=== PATIENT | female | born 1945 | race Caucasian/White ===

== ENCOUNTER 2024-03-23 16:00 | Inpatient (IN) | payer OTHER, SELFPAY ==
[2024-03-23] VITALS (16 sets, daily range): BP systolic 134–178; BP diastolic 67–108
[2024-03-23 12:48] LABS: % Basophils 0.1 % (0-2); % Immature Granulocytes 0.4 % (0-0.5); % Lymphocytes 3.5 % (20.5-51.1); % Monocytes 7.5 % (1.7-9.3); % Neutrophils 88.5 % (42.2-75.2); Absolute Immature Granulocytes 0.1 10^3/uL (0-0.05); Absolute Lymphocytes 0.6 10^3/uL (1.2-3.4); Absolute Monocytes 1.2 10^3/uL (0.1-0.6); Absolute Neutrophils 14.1 10^3/uL (1.4-6.5); Hematocrit 36.4 % (37.0-47.0); Hemoglobin 12.8 g/dL (12.0-16.0); Mean Corp Hgb Conc. 35.2 g/dL (33.0-37.0); Mean Corpuscular Hgb 36.9 pg (27.0-31.0); Mean Corpuscular Volume 104.9 fL (81.0-99.0); Nucleated Red Blood Cells % 0 %; Platelet Count 380 10^3/uL (130-400); Red Blood Cell Count 3.47 10^6/uL (4.20-5.40); Red Cell Dist. Width 13.3 % (11.5-14.5)
[2024-03-23 13:08] LABS: ALT (SGPT) 15 U/L (0-35); AST (SGOT) 25 U/L (14-36); Albumin 3.9 g/dl (3.5-5.0); Alkaline Phosphatase 76 U/L (38-126); Blood Urea Nitrogen 18 mg/dl (7-17); Calcium 10.2 mg/dl (8.4-10.2); Carbon Dioxide 28 mmol/L (22-30); Chloride 100 mmol/L (98-107); Creatine Phosphokinase 57 U/L (30-135); Estimated Creatinine Clearance 54 ml/min; Glucose 157 mg/dl (70-99); Potassium 3.7 mmol/L (3.5-5.1); Sodium 141 mmol/L (135-145); Total Bilirubin 1.7 mg/dl (0.2-1.3); Total Protein 6.1 g/dl (6.3-8.2); eGFR > 60.00
--- NOTE | 2024-03-23 13:23 | ED.MUSCINJ ---
HPI-Injury
General
Chief Complaint: Fall
Source: patient
Exam Limitations: none
Time Seen by Provider: 03/23/24 13:13
History of Present Illness-Injury
Initial Injury comments:
78-year-old female presents via EMS from place of residence after a fall 4 nights ago. She injured her right upper leg and had not been able to walk since then. She crawled back to a couch and has been couch bound since then. Today was the first
day she was able to make her way to a phone to call 911. She has not had her medicine or anything to eat or drink since then. She complains of right hip pain. She did not hit her head. She is treated for hypertension. She is not anticoagulated.
She ambulatory independently without a cane or walker typically.
Phy Exam
Physical Exam
Physical Exam:
General: Well-appearing female no acute respiratory distress
HEENT: Normocephalic atraumatic
Heart: Regular rate and rhythm no murmurs
Lungs: Clear no wheeze
Musculoskeletal exam: The patient is tender to the right upper thigh and. There is increased pain with internal rotation of the right hip. No deformity that is notable. The spine is nontender
Extremities: No cyanosis
Injury Course
Orders/Labs/Results
Orders:
Orders
03/23/24 12:38
Complete Blood Count/With Diff Urgent
Comprehensive Metabolic Panel Urgent
Creatine [Creatine Phosphokinase] Urgent
03/23/24 13:21
CR Hip - RT w/wo Pel 2-3 Vw* Urgent
Comment:
Reason For Exam: pain, after fall
Include a pelvis x-ray?: Yes
Abnormal Lab Results
03/23/24
12:38
WBC 16.0 H 10^3/uL
(4.8-10.8)
RBC 3.47 L 10^6/uL
(4.20-5.40)
Hct 36.4 L %
(37.0-47.0)
MCV 104.9 H fL
(81.0-99.0)
MCH 36.9 H pg
(27.0-31.0)
Abs Immat Gran (auto) 0.1 H 10^3/uL
(0-0.05)
Absolute Neuts (auto) 14.1 H 10^3/uL
(1.4-6.5)
Absolute Lymphs (auto) 0.6 L 10^3/uL
(1.2-3.4)
Absolute Monos (auto) 1.2 H 10^3/uL
(0.1-0.6)
Neutrophils % 88.5 H %
(42.2-75.2)
Lymphocytes % 3.5 L %
(20.5-51.1)
BUN 18 H mg/dl
(7-17)
Glucose 157 H mg/dl
(70-99)
Total Bilirubin 1.7 H mg/dl
(0.2-1.3)
Total Protein 6.1 L g/dl
(6.3-8.2)
03/23/24 12:38
03/23/24 12:38
MDM/Problems Addressed
Differential Diagnosis Includes:
Fall with right upper thigh/hip pain. Question contusion versus fracture versus dislocation. X-rays pending.
Patient has been couch bound for 4 days after the fall. Will check labs including CPK
*Critical Care Note
Total Time (30-74mins, 75-104mins- exclusive of procedures): Not Applicable
Update Note
Update Note:
I personally visualized x-rays of the right hip which demonstrate acute nondisplaced intertrochanteric hip fracture. Patient notified. Made hospitalist and orthopedics aware. Will admit to hospital
ED Attending Note
-
Portions of this chart may have been created with voice recognition software.� Occasional wrong word or��sound alike� substitutions may have occurred due to the inherent limitations of voice recognition software.
Discharge Plan
Departure
Patient Disposition: Admit
Date of Disposition: 03/23/24
Time of Disposition: 14:10
Admit to: Med/Surg
Presentation/result/management discussed w/ accepting MD/DO: Hospitalist
Discharge Problem:
Intertrochanteric fracture of right hip
Referrals:
Brendan Ocampo DO [Family Provider] -
Interventions
Interventions:
*Risk Screen - Suicide Last Done: 03/23/24 13:04
*General Assessment Last Done: 03/23/24 13:04
*Neglect/Abuse Screening Last Done: 03/23/24 13:04
ED- Fall Risk Assessment Last Done: 03/23/24 13:04
*ED COVID-19 Vaccine History Last Done: 03/23/24 12:34
ED-Musculoskeletal Assessment Last Done: 03/23/24 13:04
ED- Neurological Assessment Last Done: 03/23/24 13:04
ED-Skin Assessment Last Done: 03/23/24 13:04
Discharge Date and Time
Print Language: WOLOF
[2024-03-23] MEDS: NSS 1000 IV ×2 (14:50→18:13)
--- NOTE | 2024-03-23 14:55 | HPS.HSE ---
Family Physician
-
Family Physician: Brendan Ocampo
Chief Complaint
-
fall, right hip pain
History of Present Illness
78-year-old female past medical history of hypertension, presenting after a fall. She fell 4 nights ago after tripping on sneakers and injured her right upper leg and has not been able to walk since then. She crawled back to couch and has been
bedbound since then. Today was the first day she was able to make her way to her phone to call 911. She complains of right hip pain. She did not hit her head. She normally ambulates independently without a cane or walker.
She smokes occasionally. She denies alcohol use.
She denies any chest pain or shortness of breath or dizziness. No history of cardiac problems.
Medical History
Past Medical History
Past Medical History: Reports Other (hypertension)
Past Surgical History: Reports None
Social History
Tobacco: Smoker
Alcohol: None
Drug: None
Family History
Family History: Not pertinent
Allergies / Home Medications
Allergies reflects when Allergies were last updated in [employer].
Home Medications with original date entered in [employer]
Allergy/Medication List:
Allergies
Allergy/AdvReac Type Severity Reaction Status Date / Time
No Known Allergies Allergy Unverified 03/23/24 12:32
Home Medications
atorvastatin 40 mg tablet (Lipitor) 40 mg PO HS 03/23/24
cholecalciferol (vitamin D3) 25 mcg (1,000 unit) tablet (Vitamin D3) 25 mcg PO DAILY 03/23/24
cyanocobalamin (vitamin B-12) 1,000 mcg tablet 1,000 mcg PO DAILY 03/23/24
diltiazem HCl 360 mg capsule,extended release 24 hr 360 mg PO DAILY 03/23/24
folic acid 1 mg tablet 1 mg PO DAILY 03/23/24
furosemide 20 mg tablet (Lasix) 20 mg PO Q48H 03/23/24
hydralazine 25 mg tablet 75 mg PO DAILY 03/23/24
metoprolol succinate 50 mg tablet,extended release 24 hr (Toprol XL) 50 mg PO BID 03/23/24
potassium chloride 20 mEq tablet,extended release 40 meq PO DAILY 03/23/24
Review of Systems
-
History Source: Patient
A 12 point ROS was completed and negative except as noted: Yes
Constitutional: Reports No Symptoms
EENT: Reports No Symptoms
Respiratory: Reports No Symptoms
Cardiac: Reports No Symptoms
Abdomen/GI: Reports No Symptoms
: Reports No Symptoms
Musculoskeletal: Reports No Symptoms
Skin: Reports No Symptoms
Neurological: Reports No Symptoms
Endocrine: Reports No Symptoms
Hematologic/Lymphatic: Reports No Symptoms
Psych: Reports No Symptoms
Physical Exam
Vital Signs
Vital Signs
Temp Pulse Resp BP Pulse Ox
98.7 F 78 18 147/87 97
03/23/24 12:31 03/23/24 12:31 03/23/24 12:31 03/23/24 12:31 03/23/24 12:31
Physical Exam
General: Well Developed, Well Nourished and No Apparent Distress
HEENT: NormoCephalic, Moist mucous membranes and Atraumatic
Respiratory: Clear
Cardiac: S1/S2 and Regular Rhythm; No Murmur or Rub
GI: Soft, Non Tender, Non Distended and Normal Bowel Sounds; No Organomegaly
Rectal: Deferred by Provider
Musculoskeletal: No Clubbing, No Cyanosis and No Edema
Skin: No Rash
Neuro: Nonfocal/grossly intact
Laboratory Results
-
03/23/24 12:38
03/23/24 12:38
Laboratory Results
Total Bilirubin 1.7 mg/dl (0.2-1.3) H 03/23/24 12:38
AST 25 U/L (14-36) 03/23/24 12:38
ALT 15 U/L (0-35) 03/23/24 12:38
Alkaline Phosphatase 76 U/L (38-126) 03/23/24 12:38
Data Reviewed
-
Lab Data: Labs Reviewed by me
Old Records: Reviewed
Impression/Plan
-
IMPRESSION:
PLAN:
# Mechanical fall resulting in right femur fracture
-N.p.o.
-Patient to go to the OR soon by ortho
-Tylenol, tramadol for pain
Essential hypertension
-Continue diltiazem, hydralazine, metoprolol
-Continue statin
Occasional lower extremity edema
-Takes Lasix as needed
DNR/DNI
DVT prophylaxis�SCDs
N.p.o.
--- NOTE | 2024-03-23 15:54 | CON.ORTHO ---
Consultation - Orthopedics
History
HPI: 78-year-old female presents emergency department status post mechanical fall at home. She subsequently diagnosed with minimally displaced right intertrochanteric femur fracture. She was admitted to the hospital service and orthopedics was
consulted for further evaluation and treatment. Patient reports that Tuesday evening she was taking out the trash when she tripped and fell. Since that time she has been unable to walk and she has been laying on a couch at home. She localizes pain
to the right groin. She has been unable to bear weight. Symptoms are made worse with motion to the right hip. She does not use a cane or walker for ambulatory assistance. She lives alone at home.
Allergies / Home Medications
Past medical history: Hypertension
Past surgical history: None reported
Family history: Not pertinent
Social history: Lives alone at home, denies significant alcohol usage, occasional cigarette smoking
Allergy/AdvReac Type Severity Reaction Status Date / Time
No Known Allergies Allergy Unverified 03/23/24 12:32
�Medication �Instructions �Recorded
atorvastatin 40 mg tablet (Lipitor) 40 mg PO HS 03/23/24
cholecalciferol (vitamin D3) 25 25 mcg PO DAILY 03/23/24
mcg (1,000 unit) tablet (Vitamin
D3)
cyanocobalamin (vitamin B-12) 1,000 mcg PO DAILY 03/23/24
1,000 mcg tablet
diltiazem HCl 360 mg 360 mg PO DAILY 03/23/24
capsule,extended release 24 hr
folic acid 1 mg tablet 1 mg PO DAILY 03/23/24
furosemide 20 mg tablet (Lasix) 20 mg PO Q48H 03/23/24
hydralazine 25 mg tablet 75 mg PO DAILY 03/23/24
metoprolol succinate 50 mg 50 mg PO BID 03/23/24
tablet,extended release 24 hr
(Toprol XL)
potassium chloride 20 mEq 40 meq PO DAILY 03/23/24
tablet,extended release
Vital Signs / Lab Results
Temp Pulse Resp BP Pulse Ox
98.7 F 78 16 150/76 97
03/23/24 12:31 03/23/24 14:55 03/23/24 14:55 03/23/24 14:55 03/23/24 14:55
03/23/24 12:38
03/23/24 12:38
10 point review systems reviewed and negative unless otherwise stated
General: Pleasant, no acute distress at rest
Musculoskeletal left lower extremity
Skin intact, erythema, no ecchymotic staining
Leg lengths are approximately equal with mild rotational ex rotation deformity
No palpable ipsilateral knee effusion
Tenderness palpation over groin and lateral trochanteric flare
Positive EHL, FHL, ankle dorsiflexion, plantarflexion
Brisk cap refill
Sensation grossly tact light touch distally
No other areas of bony tenderness palpation or crepitation of long bones or joints on tertiary examination
Diagnostic studies
X-rays right hip and knee independently viewed by myself. There is evidence of a minimally displaced right intertrochanteric femur fracture
Assessment / Plan
78-year-old female minimally displaced right intertrochanteric femur fracture. I had a long detailed discussion the patient regarding diagnosis and treatment options. Discussed both surgical nonsurgical options. After discussion we mutually
elected to proceed with surgical intervention in the form of cephalomedullary nail fixation. We discussed risks benefits and alternatives of surgery. Discussed the usual expected perioperative postoperative course. After our discussion written
informed consent was obtained
Nonweightbearing right lower extremity
N.p.o.
Please hold anticoagulation
Medical management per primary team
Plan: 2 OR today for operative fixation right intertrochanteric femur fracture pending OR availability and medical clearance
--- NOTE | 2024-03-23 17:02 | OR.RPT ---
Operative Report
Operative Report
Anesthesia Type:
General
Operative Indications:
Intertrochanteric femur fracture
Operative Findings :
Same, minimally displaced
Complications:
None
Implants:
130 degree, 10 mm short gamma nail, 80 mm cephalomedullary lag screw, 30 mm x 5 mm interlocking screw
Procedure and Technique:
Insertion right short cephalomedullary nail
INDICATIONS FOR PROCEDURE:
78-year-old patient presented status post mechanical fall. They were subsequently diagnosed with an intertrochanteric femur fracture. Orthopedics was consulted for further evaluation and treatment. After discussion with the patient and her
family, decision was made to proceed with operative intervention in the form of short cephalomedullary nail. Long discussion was had regarding risks and benefits of procedure. Risks include but are not limited to infection, blood loss, damage to
surrounding structures, persistent pain, loss of function, need for repeat surgery, implant cut out, periprosthetic fracture, DVT/PE and adverse risks of anesthesia. Benefits include early mobilization and fracture stabilization. After discussion
written informed consent was obtained.
OPERATIVE PROCEDURE:
Patient was seen and identified in the preoperative holding area. Operative extremity was marked. Patient was taken to the operating room and provided anesthesia by the anesthesia team. Placed supine on fracture table. Nonoperative extremity was
placed in a scissored position and padded with a gel pad to the contralateral post of the fracture table. Operative extremity was placed in a well-padded fracture boot. Biplanar fluoroscopy confirmed appropriate reduction after axial traction,
adduction and slight internal rotation of the fracture. Operative extremity was then prepped and draped in normal sterile fashion. Timeout was performed again identifying the operative extremity correctly. Preoperative antibiotics were addressed.
Approximately 5 cm incision was made 2 fingerbreadths proximal to the greater trochanter. Sharp dissection was carried through skin and subcutaneous tissues deep fascial layers. Guidepin was then inserted under plantar fluoroscopic guidance
through the greater trochanter in accordance with the implants operative technique. This was inserted to a depth just distal to the lesser trochanter. Proximal opening reamer was then utilized. A short cephalomedullary nail was then inserted to
the appropriate depth. Trocar was then inserted through the aiming arm. Sharp dissection was then carried through skin and subcutaneous tissues as well as deep fascial layers. Guidewire was inserted through the trocar into the femoral neck and
head. Appropriate position was confirmed under biplanar fluoroscopy. Attention was made to minimize the tip apex distance. Measurements were obtained for the cephalomedullary screw. Cannulated drill was then drilled to the appropriate depth
followed by the insertion of cannulated cephalomedullary screw. Appropriate final position of the screw within the confines of the femoral neck and head were confirmed again on biplanar fluoroscopy. Setscrew was deployed additional trocar was then
inserted through the aiming arm for the distal interlocking screw. Sharp dissection was carried through skin, subcutaneous tissues and deep fascial layers. Appropriate length interlocking screw was then drilled and inserted. Final appropriate
positioning was confirmed again on biplanar fluoroscopy. Satisfied with the extent of surgery, wounds were copiously irrigated with normal saline solution and closed in a layered fashion utilizing 0 Vicryl for deep fascial layer, 2-0 Vicryl for
subcu cutaneous layer and justin for skin. Aquacel dressings were applied. Anesthesia was reversed and patient was taken to the operating room in stable condition. Postoperative plans include weightbearing the patient's tolerance right lower
extremity. Recommend DVT prophylaxis Lovenox renally dosed daily x 28 days
Disposition:
PACU stable condition
--- NOTE | 2024-03-23 20:00 | PTCARENOTE ---
Pt arrived from PACU at 18:45 post R hip ORIF with Gamma Nail fell 4 days ago, got to her couch was only able to get to phone on 03/23. Pt lives alone independently at [facility] in [place]. PMH HTN and she currently according to PT smokes less
than a pack a week. PT AOx3, bed in a low position, denies pain, call light in reach.
[2024-03-23] MEDS: TOPROL XL 50 MG PO (20:19)
[2024-03-23] MEDS: COLACE 100 MG PO (20:19)
[2024-03-23] MEDS: LIPITOR 40 MG PO (22:06)
[2024-03-23] MEDS: ANCEF 5 IV (23:57)
[2024-03-24] VITALS (8 sets, daily range): BP systolic 105–152; BP diastolic 48–69; PULSE 63; O2SAT 94–97
[2024-03-24] MEDS: NSS 1000 IV (02:30)
[2024-03-24 07:24] LABS: % Basophils 0.1 % (0-2); % Immature Granulocytes 0.4 % (0-0.5); % Lymphocytes 4.1 % (20.5-51.1); % Monocytes 8.3 % (1.7-9.3); % Neutrophils 87.1 % (42.2-75.2); Absolute Immature Granulocytes 0.1 10^3/uL (0-0.05); Absolute Lymphocytes 0.7 10^3/uL (1.2-3.4); Absolute Monocytes 1.3 10^3/uL (0.1-0.6); Absolute Neutrophils 13.9 10^3/uL (1.4-6.5); Hematocrit 29.9 % (37.0-47.0); Hemoglobin 10.8 g/dL (12.0-16.0); Mean Corp Hgb Conc. 36.1 g/dL (33.0-37.0); Mean Corpuscular Hgb 38.2 pg (27.0-31.0); Mean Corpuscular Volume 105.7 fL (81.0-99.0); Mean Platelet Volume 9.4 fL (7.4-10.4); Nucleated Red Blood Cells % 0 %; Platelet Count 323 10^3/uL (130-400); Red Blood Cell Count 2.83 10^6/uL (4.20-5.40); Red Cell Dist. Width 13.4 % (11.5-14.5); White Blood Cell Count 15.9 10^3/uL (4.8-10.8)
[2024-03-24 07:56] LABS: ALT (SGPT) 12 U/L (0-35); AST (SGOT) 28 U/L (14-36); Albumin 2.9 g/dl (3.5-5.0); Alkaline Phosphatase 59 U/L (38-126); Blood Urea Nitrogen 13 mg/dl (7-17); Calcium 8.7 mg/dl (8.4-10.2); Carbon Dioxide 27 mmol/L (22-30); Chloride 102 mmol/L (98-107); Estimated Creatinine Clearance 54 ml/min; Glucose 101 mg/dl (70-99); Sodium 141 mmol/L (135-145); Total Protein 5.1 g/dl (6.3-8.2); eGFR > 60.00
--- NOTE | 2024-03-24 08:24 | W.PN.HOSP.TC ---
Today's Communication/Plan
-
see bold
Assessment / Plan
Assessment / Plan
Gen: NAD, Awake and alert, appears chronically ill and malnourished, cachectic
Eyes: EOMI, PERRLA, no scleral icterus.
Neck: supple.
CV: RRR, +S1/S2, no m/r/g.
Resp: CTAB, no rales, wheezes, or rhonchi.
Abd: +BS, soft, NT, ND
Skin: No rashes.
Neuro: CN 2-12 intact, non-focal.
Psych: Normal mood and affect.
Mechanical fall resulting in right femur fracture:
-s/p insertion right short cephalomedullary nail on 03/23/24
-ortho following
Other problems:
Hyperkalemia: 40meq x 2, check Mg
Essential hypertension: Continue diltiazem, hydralazine, metoprolol
HLD: Continue statin
Occasional lower extremity edema: Takes Lasix as needed
DNR/DNI
DVT prophylaxis�SCDs
Medically cleared for discharge, case management aware.
Anticipated Discharge: Today
Subjective/Interval History
-
Date of Service: March 24, 2024
Denies CP/SOB.
Objective Data
-
Labs:
Laboratory Results
03/24/24
04:54
WBC 15.9 H
Hgb 10.8 L
Hct 29.9 L
Plt Count 323
Sodium 141
Potassium 3.0 L
Chloride 102
Carbon Dioxide 27
BUN 13
Creatinine 0.4 L
Glucose 101 H
Calcium 8.7 D
Total Bilirubin 1.0
AST 28
ALT 12
Alkaline Phosphatase 59
Vital Signs:
Vital Signs
Temp Pulse Resp BP Pulse Ox
98.4 F 61 17 151/65 93
03/24/24 07:43 03/24/24 07:43 03/24/24 07:43 03/24/24 07:43 03/24/24 07:43
I&O
03/23/24 03/24/24 03/25/24
06:59 06:59 06:59
Intake Total 1645 / 1645
Output Total 1100 / 1100
Balance 545 / 545
[2024-03-24] MEDS: ANCEF 5 IV (08:30)
[2024-03-24] MEDS: COLACE 100 MG PO ×2 (08:32→20:00)
[2024-03-24] MEDS: FOLVITE 1 MG PO (08:32)
[2024-03-24] MEDS: LOVENOX 40 MG SC (08:33)
[2024-03-24] MEDS: VITAMIN B-12 1000 MCG PO (08:33)
[2024-03-24] MEDS: VITAMIN D3 (cholecalciferol) 25 MCG PO (08:33)
[2024-03-24] MEDS: TOPROL XL 50 MG PO ×2 (08:33→20:04)
[2024-03-24] MEDS: CARDIZEM CD 360 MG PO (08:34)
[2024-03-24] MEDS: APRESOLINE 75 MG PO (08:34)
[2024-03-24] MEDS: KCL 40 MEQ PO ×2 (09:39→13:23)
[2024-03-24 11:03] LABS: Magnesium 1.6 mg/dl (1.6-2.3)
--- NOTE | 2024-03-24 11:28 | W.PN.ORTHO ---
Today's Communication / Plan
-
78-year-old female postop day 1 status post right cephalomedullary nail fixation right intertrochanteric femur fracture doing well
Weightbearing as tolerated right lower extremity
PT OT
Pain control
DVT prophylaxis: Recommend renally dosed Lovenox x 28 days
Medical management per primary team
Plan to follow-up outpatient with myself in 2 to 3 weeks for repeat evaluation with planned removal of justin
Assessment
.
Dressing:
Clean, dry and intact.
Subjective
.
.:
Patient resting comfortably in chair this morning. No acute overnight events documented.
Vital Signs and Labs
.
Vital Signs and Labs:
Lab Results
03/24/24 04:54
03/24/24 04:54
Temp Pulse Resp BP Pulse Ox
98.4 F 61 17 151/65 93
03/24/24 07:43 03/24/24 07:43 03/24/24 07:43 03/24/24 07:43 03/24/24 07:43
Physical Exam
-
Musculoskeletal right lower extremity
Mild bloody drainage on dressings, mild swelling right thigh
Leg lengths equal
Positive EHL, FHL, dorsiflexion, plantarflexion
Brisk cap refill distally
--- NOTE | 2024-03-24 15:13 | CM ---
Addendum entered by Shauna Jimenez 03/24/24 15:26:
[facility] form explained; form signed @ [id number]
Original Note:
Met with patient; initial assessment and case management consult completed
Primary contact verified: Kavin Velez, Son, # [phone]
Pharmacy verified: [facility] @ [address] [place] [address]
Patient reported she lives alone in an apartment, 6th floor; elevator access in building; Bathroom has tub w/shower; grab bars
PLOF: reported she was independent with ambulation and ADLs; Drives
NO SNF or Home Health utilization history
Will need transport to SNF
Explained PT/OT recommendation for SNF when discharged; reviewed options; preferences are #1 [facility] or [facility]; referrals submitted via [facility]
Plan: Discharge to SNF pending bed availability and Authorization approval
[2024-03-24] MEDS: NSS IV (17:17)
[2024-03-24] MEDS: MAGNESIUM SULFATE 100 IV (18:10)
[2024-03-24] MEDS: LIPITOR 40 MG PO (21:18)
[2024-03-25 06:07] LABS: Hematocrit 28.1 % (37.0-47.0); Hemoglobin 9.8 g/dL (12.0-16.0); Mean Corp Hgb Conc. 34.9 g/dL (33.0-37.0); Mean Corpuscular Hgb 36.3 pg (27.0-31.0); Mean Corpuscular Volume 104.1 fL (81.0-99.0); Mean Platelet Volume 9.2 fL (7.4-10.4); Platelet Count 322 10^3/uL (130-400); Red Cell Dist. Width 13.6 % (11.5-14.5); White Blood Cell Count 12.3 10^3/uL (4.8-10.8)
[2024-03-25 06:35] LABS: Blood Urea Nitrogen 17 mg/dl (7-17); Calcium 9.3 mg/dl (8.4-10.2); Carbon Dioxide 26 mmol/L (22-30); Chloride 105 mmol/L (98-107); Estimated Creatinine Clearance 54 ml/min; Glucose 104 mg/dl (70-99); Potassium 4.1 mmol/L (3.5-5.1); Sodium 139 mmol/L (135-145); eGFR > 60.00
[2024-03-25 07:10] VITALS: BP 135/59
--- NOTE | 2024-03-25 08:08 | W.PN.HOSP.TC ---
Today's Communication/Plan
-
d/c
Assessment / Plan
Assessment / Plan
Gen: NAD, Awake and alert, appears chronically ill and malnourished, cachectic
Eyes: EOMI, PERRLA, no scleral icterus.
Neck: supple.
CV: remains RRR, +S1/S2, no m/r/g.
Resp: remains CTAB, no rales, wheezes, or rhonchi.
Abd: +BS, soft, NT, ND
Skin: No rashes.
Neuro: remains CN 2-12 intact, non-focal.
Psych: Normal mood and affect.
Mechanical fall resulting in right femur fracture:
-s/p insertion right short cephalomedullary nail on 03/23/24
-ortho following
Other problems:
Hypokalemia, resolved
Essential hypertension: Continue diltiazem, hydralazine, metoprolol
HLD: Continue statin
Occasional lower extremity edema: Takes Lasix as needed
DNR/DNI
DVT prophylaxis�SCDs
Remains medically cleared for discharge since 03/24/24AM, case management aware.
Anticipated Discharge: Today
Subjective/Interval History
-
Date of Service: March 25, 2024
No new complaints.
Objective Data
-
Labs:
Laboratory Results
03/25/24
05:27
WBC 12.3 H
Hgb 9.8 L
Hct 28.1 L
Plt Count 322
Sodium 139
Potassium 4.1 D
Chloride 105
Carbon Dioxide 26
BUN 17
Creatinine 0.6
Glucose 104 H
Calcium 9.3
Vital Signs:
Vital Signs
Temp Pulse Resp BP Pulse Ox
98.3 F 49 16 108/56 93
03/24/24 22:37 03/24/24 22:37 03/24/24 22:37 03/24/24 22:37 03/24/24 22:37
I&O
03/24/24 03/25/24 03/26/24
06:59 06:59 06:59
Intake Total 1645 / 1645 1580 / 1580
Output Total 1100 / 1100
Balance 545 / 545 1580 / 1580
[2024-03-25 08:50] VITALS: BP 114/52
[2024-03-25] MEDS: CARDIZEM CD 360 MG PO (09:05)
[2024-03-25] MEDS: VITAMIN B-12 1000 MCG PO (09:06)
[2024-03-25] MEDS: LOVENOX 40 MG SC (09:06)
[2024-03-25] MEDS: COLACE 100 MG PO ×2 (09:06→19:49)
[2024-03-25] MEDS: TOPROL XL 50 MG PO ×2 (09:06→19:48)
[2024-03-25] MEDS: APRESOLINE 75 MG PO (09:06)
[2024-03-25] MEDS: VITAMIN D3 (cholecalciferol) 25 MCG PO (09:06)
[2024-03-25] MEDS: FOLVITE 1 MG PO (09:12)
--- NOTE | 2024-03-25 09:13 | PTCARENOTE ---
Patient HR apically this am was 50. Bp was 135/59. Dr. Hirsch made aware as patient is to receive hydralazine, toprol xl, and diltiazem. Recheck was 114/[address] Hirsch instructed Rn to continuing giving all AM medications.
[2024-03-25 10:00] VITALS: BP 101/63; PULSE 62; O2SAT 93
[2024-03-25 15:05] VITALS: BP 100/51
[2024-03-25] MEDS: LIPITOR 40 MG PO (19:49)
[2024-03-25 23:06] VITALS: BP 112/48
[2024-03-26 07:02] LABS: Hematocrit 27.6 % (37.0-47.0); Hemoglobin 9.5 g/dL (12.0-16.0); Mean Corp Hgb Conc. 34.4 g/dL (33.0-37.0); Mean Corpuscular Hgb 36.4 pg (27.0-31.0); Mean Corpuscular Volume 105.7 fL (81.0-99.0); Mean Platelet Volume 9.8 fL (7.4-10.4); Platelet Count 325 10^3/uL (130-400); Red Blood Cell Count 2.61 10^6/uL (4.20-5.40); Red Cell Dist. Width 13.8 % (11.5-14.5)
--- NOTE | 2024-03-26 07:26 | W.PN.HOSP.TC ---
Today's Communication/Plan
-
Awaiting authorization, discharge to short-term rehab tomorrow
Assessment / Plan
Assessment / Plan
Mechanical fall resulting in right femur fracture:
-s/p insertion right short cephalomedullary nail on 03/23/24
-ortho following, follow-up outpatient
-awaiting authorization, discharge to short-term rehab tomorrow
-rec lovenox through 04/19 for DVT ppx
Leukocytosis
-Likely reactive, resolved
Acute blood loss anemia
-From surgery, mild, monitor
Other problems:
Hypokalemia, resolved
Essential hypertension: Continue diltiazem, hydralazine, metoprolol
HLD: Continue statin
Occasional lower extremity edema: Takes Lasix as needed
DVT prophylaxis�Lovenox
DNR
Total time spent to see the patient on the floor, examine the patient, review data and lab results, discuss treatment plan with patient, nursing staff around 36 minutes.
Physical Exam
General: No acute distress
HEENT: Normocephalic, Atraumatic, EOMI, MMM
Respiratory: Clear to Auscultation bilaterally
Cardiac: Normal S1/S2, Regular Rate and Rhythm
GI: Soft, Nontender, Nondistended, Normal Bowel Sounds
Extremities: No Clubbing, Cyanosis
Msk: Right hip incision dressed
Neuro: Nonfocal/Grossly Intact
Anticipated Discharge: Within 24 hours
Subjective/Interval History
-
Date of Service: March 26, 2024
Patient reports her hip pain is tolerable. She had a bowel movement yesterday. No chest pain, shortness of breath. No fever, no vomiting.
Objective Data
-
Labs:
Laboratory Results
03/26/24
05:10
WBC 9.0
Hgb 9.5 L
Hct 27.6 L
Plt Count 325
Sodium Pending
Potassium Pending
Chloride Pending
Carbon Dioxide Pending
BUN Pending
Creatinine Pending
Glucose Pending
Calcium Pending
Vital Signs:
Vital Signs
Temp Pulse Resp BP Pulse Ox
98.4 F 52 20 112/48 90
03/25/24 23:06 03/25/24 23:06 03/25/24 23:06 03/25/24 23:06 03/25/24 23:06
I&O
03/25/24 03/26/24 03/27/24
06:59 06:59 06:59
Intake Total 1580 / 1580 1540 / 1540
Balance 1580 / 1580 1540 / 1540
[2024-03-26 07:27] VITALS: BP 125/55
[2024-03-26 07:28] LABS: Blood Urea Nitrogen 17 mg/dl (7-17); Carbon Dioxide 26 mmol/L (22-30); Chloride 103 mmol/L (98-107); Estimated Creatinine Clearance 54 ml/min; Glucose 102 mg/dl (70-99); Potassium 3.8 mmol/L (3.5-5.1); Sodium 138 mmol/L (135-145); eGFR > 60.00
[2024-03-26] MEDS: APRESOLINE 75 MG PO (08:18)
[2024-03-26] MEDS: CARDIZEM CD 360 MG PO (08:21)
[2024-03-26] MEDS: VITAMIN B-12 1000 MCG PO (08:21)
[2024-03-26] MEDS: VITAMIN D3 (cholecalciferol) 25 MCG PO (08:21)
[2024-03-26] MEDS: LOVENOX 40 MG SC (08:21)
[2024-03-26] MEDS: COLACE 100 MG PO ×2 (08:21→21:13)
[2024-03-26] MEDS: FOLVITE 1 MG PO (08:21)
[2024-03-26] MEDS: TOPROL XL 50 MG PO ×2 (08:22→21:13)
[2024-03-26 10:49] VITALS: BP 122/58; PULSE 56; O2SAT 93
[2024-03-26 10:58] VITALS: BP 122/58; PULSE 57; O2SAT 94
--- NOTE | 2024-03-26 11:21 | CM ---
Addendum entered by Bibi Olivas 03/26/24 11:40:
[facility] - can accept
[facility] - can accept
Discussed with pt - prefers [facility]. Reports she does not feel well today - Dr Cagle made aware
Plan - anticipate transfer to SNF when bed obtained
Original Note:
Case management following for discharge planning
Pt medically ready for discharge
LM with Jaquelin at [facility] and with Ángela at [facility] - to check on bed availability
Waiting on return call
Will need auth when bed obtained
Plan - anticipate transfer to SNF when bed obtained
[2024-03-26 15:25] VITALS: BP 114/58
[2024-03-26] MEDS: LIPITOR 40 MG PO (21:13)
[2024-03-26 23:46] VITALS: BP 124/61
[2024-03-27 07:35] LABS: Hematocrit 30.3 % (37.0-47.0); Hemoglobin 10.5 g/dL (12.0-16.0); Mean Corp Hgb Conc. 34.7 g/dL (33.0-37.0); Mean Corpuscular Hgb 37.1 pg (27.0-31.0); Mean Corpuscular Volume 107.1 fL (81.0-99.0); Mean Platelet Volume 9.9 fL (7.4-10.4); Platelet Count 354 10^3/uL (130-400); Red Blood Cell Count 2.83 10^6/uL (4.20-5.40); Red Cell Dist. Width 13.5 % (11.5-14.5); White Blood Cell Count 8.5 10^3/uL (4.8-10.8)
[2024-03-27 07:49] VITALS: BP 141/68
[2024-03-27] MEDS: CARDIZEM CD 360 MG PO (08:12)
[2024-03-27] MEDS: VITAMIN D3 (cholecalciferol) 25 MCG PO (08:12)
[2024-03-27] MEDS: FOLVITE 1 MG PO (08:12)
[2024-03-27] MEDS: COLACE 100 MG PO (08:12)
[2024-03-27] MEDS: VITAMIN B-12 1000 MCG PO (08:12)
[2024-03-27] MEDS: APRESOLINE 75 MG PO (08:13)
[2024-03-27] MEDS: TOPROL XL 50 MG PO (08:13)
[2024-03-27] MEDS: LOVENOX 40 MG SC (08:16)
--- NOTE | 2024-03-27 09:07 | W.PN.HOSP.TC ---
Today's Communication/Plan
-
Discharge to short-term rehab today
Assessment / Plan
Assessment / Plan
Mechanical fall resulting in right femur fracture:
-s/p insertion right short cephalomedullary nail on 03/23/24
-ortho following, follow-up outpatient
-discharge to short-term rehab today
-rec lovenox through 04/19 for DVT ppx
Leukocytosis
-Likely reactive, resolved
Acute blood loss anemia
-From surgery, mild, monitor
Other problems:
Hypokalemia, resolved
Essential hypertension: Continue diltiazem, hydralazine, metoprolol
HLD: Continue statin
Occasional lower extremity edema: Takes Lasix as needed
DVT prophylaxis�Lovenox
DNR
Physical Exam
General: No acute distress
HEENT: Normocephalic, Atraumatic, EOMI, MMM
Respiratory: Clear to Auscultation bilaterally
Cardiac: Normal S1/S2, Regular Rate and Rhythm
GI: Soft, Nontender, Nondistended, Normal Bowel Sounds
Extremities: No Clubbing, Cyanosis
Msk: Right hip incision dressed
Neuro: Nonfocal/Grossly Intact
Anticipated Discharge: Today
Subjective/Interval History
-
Date of Service: March 27, 2024
Patient denies hip pain. No chest pain, no shortness of breath. No fever, no vomiting.
Objective Data
-
Labs:
Laboratory Results
03/27/24
05:53
WBC 8.5
Hgb 10.5 L
Hct 30.3 L
Plt Count 354
Vital Signs:
Vital Signs
Temp Pulse Resp BP Pulse Ox
98.4 F 58 16 141/68 94
03/27/24 07:49 03/27/24 08:13 03/27/24 07:49 03/27/24 08:13 03/27/24 07:49
I&O
03/26/24 03/27/24 03/28/24
06:59 06:59 06:59
Intake Total 1540 / 1540 1140 / 1140
Output Total 350 / 350
Balance 1540 / 1540 790 / 790
[2024-03-27 10:44] LABS: COVID-19 Antigen Negative (Negative)
--- NOTE | 2024-03-27 10:53 | CM ---
Addendum entered by Bibi Olivas 03/27/24 14:05:
Plan - transfer to [facility]
R - [phone]
F - [phone]
Addendum entered by Bibi Olivas 03/27/24 12:52:
Auth obtained - info given to Jaquelin at [facility]
Original Note:
Case management following for discharge planning
Pt for discharge - PT/OT recs SNF
Accepted by [facility]
Will need auth
Called [facility] to obtain auth - spoke with Chantell
Clinical information reviewed
Pending reference # [id number]
Plan - anticipate transfer to [facility] pending auth
[2024-03-27 11:37] VITALS: BP 125/60; PULSE 56; O2SAT 93
--- NOTE | 2024-03-27 12:06 | W.DCSUMMARY ---
Discharge Summary
Discharge Data
Date of Admission: 03/23/24
Date of Discharge: 03/27/24
-
Pending Results: No
Hospital Course
Discharge diagnosis:
Right femur fracture
Mechanical fall
Leukocytosis
Acute blood loss anemia
Hypokalemia
Essential hypertension
Hyperlipidemia
Consults: Orthopedic surgery
Procedures:
03/23/2024 Insertion right short cephalomedullary nail
Hospital course:
78-year-old female with a past medical history of hypertension, hyperlipidemia, and intermittent lower extremity edema presents with right hip pain status post mechanical fall. Patient was found to have a right intertrochanteric femur fracture.
Patient was seen in conjunction with orthopedic surgery, and underwent ORIF on 03/23/2024.
Patient's hospital course was complicated by mild acute blood loss anemia. Her hemoglobin was monitored, and remained stable at 10.5 on the day of discharge. She also had a leukocytosis, that was likely reactive. Her leukocytosis resolved without
any antibiotics. There were no signs or symptoms of infection.
Patient is medically stable and cleared by orthopedic surgery for discharge. Orthopedic surgery recommends Lovenox 40 mg subcu daily through 04/19/2024 for DVT prophylaxis. Patient is discharged to short-term rehab. If she is to go home from
short-term rehab before 04/19/2024, she will need to be changed from subcu Lovenox to aspirin 325 mg daily for DVT prophylaxis through 04/19/2024. She needs to follow-up with her primary care doctor 1 week after she leaves rehab, and orthopedic
surgery in the office in 2 weeks.
Disposition: Short-term rehab
Discharge planning: Required 39-minute
Discharge Plan
-
Patient Disposition: [facility]/SNF
Discharge Diagnosis/Procedures: Right femur fracture status post surgery, mechanical fall, hypokalemia, hypertension
Condition: Good
Diet: Low Cholesterol
Activity: As tolerated
Blood Work: BMP and CBC on 04/02
Activity Restrictions/Additional Instructions:
Take lovenox 40 mg subcu daily for blood clot prevention through 04/19/2024.
If patient goes home prior to that, she will need to be on aspirin 325 mg daily through 04/19/2024 for blood clot prevention.
Follow-up with orthopedic surgery in the office in 2 weeks, and with primary care doctor in 1 week.
Referrals:
Brendan Ocampo DO [Family Provider] - in one week
Naif Masters MD [Active] - in two weeks
Prescriptions:
New
acetaminophen 325 mg Tablet
650 mg PO Q4HPRN PRN (Reason: mild pain/LEÓN/temp> 100.4F) Qty: 30 0RF
enoxaparin 40 mg/0.4 mL Syringe
40 mg SC DAILY 24 Days Qty: 0 0RF
Continued
atorvastatin [Lipitor] 40 mg Tablet
40 mg PO HS
metoprolol succinate [Toprol XL] 50 mg Tablet Extended Release 24 Hr
50 mg PO BID
hydralazine 25 mg Tablet
75 mg PO DAILY
diltiazem HCl 360 mg Capsule,Extended Release 24hr
360 mg PO DAILY
furosemide [Lasix] 20 mg Tablet
20 mg PO Q48H
potassium chloride 20 mEq Tablet Extended Release
40 meq PO DAILY
cyanocobalamin (vitamin B-12) 1,000 mcg Tablet
1,000 mcg PO DAILY
folic acid 1 mg Tablet
1 mg PO DAILY
cholecalciferol (vitamin D3) [Vitamin D3] 25 mcg (1,000 unit) Tablet
25 mcg PO DAILY
Discharge Orders:
Discharge Patient (As Directed); Ordered 03/27/24
Ordered By: Vladimir Cagle
Discharge Date and Time
Discharge Date/Time: 03/27/24 14:58
Print Language: TURKISH
[2024-03-27] MEDS: KCL 40 MEQ PO (12:18)
--- NOTE | 2024-03-27 12:39 | CM ---
Received call from Chantell at [facility] with approved SNF auth, (skilled level 1); 7 days approved 03/27-NRD 04/02/24. For concurrent reviews SNF should call .Auth # [id number]. Update to BECCA.
[2024-03-27 14:28] VITALS: BP 125/56
--- NOTE | 2024-03-28 09:01 | W.PN.UPDATE ---
Update Note
Progress Note Update
This patient needed to remain inpatient status.
== END 2024-03-27 14:58 | DRG 481 ==
LOC: 1 ACUTE 16:00
PROVIDERS: Family Medicine; Internal Medicine; Student in an Organized Health Care Education/Training Program; ADMITTING PHYSICIAN Hospitalist; ATTENDING PHYSICIAN Hospitalist; EMERGENCY PHYSICIAN Emergency Medicine; FAMILY PHYSICIAN Family Medicine; OTHER PHYSICIAN Orthopaedic Surgery
PROC: 0QS636Z Reposition Right Upper Femur with Intramedullary Internal Fixation Device, Percutaneous Approach (ICD-10-PCS; 2024-03-23)
DX: S72.141A Displaced intertrochanteric fracture of right femur, initial encounter for closed fracture (principal); D62 Acute posthemorrhagic anemia; I10 Essential (primary) hypertension; Z66 Do not resuscitate; E87.5 Hyperkalemia; E78.5 Hyperlipidemia, unspecified; D72.829 Elevated white blood cell count, unspecified; F17.210 Nicotine dependence, cigarettes, uncomplicated; W01.0XXA Fall on same level from slipping, tripping and stumbling without subsequent striking against object, initial encounter; Z11.52 Encounter for screening for COVID-19; Z79.899 Other long term (current) drug therapy; E87.6 Hypokalemia
CPT/HCPCS: 27245; 73502; 73552; 73564; 76000; 80048; 80053; 82550; 83735; 85025; 85027; 86850; 86900; 86901; 87811; 97110; 97116; 97163; 97166; 97530; 97535; 99285; C1713